=== PATIENT | female | born 1965 | race Hispanic/Latino ===

== ENCOUNTER 2018-02-14 06:06 | Emergency (ER) | payer SELFPAY ==
[2018-02-14] MEDS ORDERED: Sodium Chloride 0.9% 1,000 ML ONE (06:13)
[2018-02-14] MEDS ORDERED: Sodium Chloride 0.9% 1,000 ML IV ONE (06:13)
[2018-02-14 06:27] LABS: BASO % 0.3 % (0.0-2.0); EOS % 0.1 % (0.0-4.0); HEMOGLOBIN 13.6 g/dL (11.0-16.0); LYMPH # 2.1 K/uL (1.0-4.3); LYMPH % 18.5 % (20.0-40.0); MEAN CELL VOLUME 88.9 fL (81.0-99.0); MEAN CORPUSCULAR HEMOGLOBIN 30.8 pg (27.0-31.0); MEAN CORPUSCULAR HGB CONC 34.6 g/dL (33.0-37.0); MEAN PLATELET VOLUME 8.9 fL (7.2-11.7); MONO # 0.4 K/uL (0.0-0.8); MONO % 3.6 % (0.0-10.0); NEUT # 8.8 K/uL (1.8-7.0); NEUT % 77.5 % (50.0-75.0); RBC 4.42 Mil/uL (3.80-5.20); RED CELL DISTRIBUTION WIDTH 13.6 % (11.5-14.5); WHITE BLOOD COUNT 11.3 K/uL (4.8-10.8)
--- NOTE | 2018-02-14 06:39 | C.PDOC ---
History Of Present Illness 52 year old female presents to the ED c/o nausea, vomit and diarrhea that started at midnight. Patient reports she ate homemade egg salad and cake tonight prior to symptoms starting. Patient is not toleration PO. Patient denies fever, chills, back pain, dysuria, heamturia, rash. <Nela Avila - Last Filed: 02/14/18 06:47> History Per: Patient History/Exam Limitations: no limitations Onset/Duration Of Symptoms: Hrs Current Symptoms Are (Timing): Still Present Context: Food Location Of Pain/Discomfort: Epigastric Radiation Of Pain To:: None Quality Of Discomfort: "Pain" Associated Symptoms: Nausea, Vomiting, Diarrhea Alleviating Factors: None Recent travel outside of the [place]: No Additional History Per: Patient Abnormal Vaginal Bleeding: No <Nela Avila - Last Filed: 02/14/18 06:47> <Regine Espinoza - Last Filed: 02/14/18 09:01> Time Seen by Provider: 02/14/18 06:39 Chief Complaint (Nursing): GI Problem Past Medical History Reviewed: Historical Data, Nursing Documentation, Vital Signs Vital Signs: Last Vital Signs Temp 98 F 02/14/18 06:10 Pulse 72 02/14/18 06:10 Resp 18 02/14/18 06:10 BP 159/104 H 02/14/18 06:10 Pulse Ox 99 02/14/18 06:10 - Medical History PMH: No Chronic Diseases Surgical History: No Surg Hx Family History: States: Unknown Family Hx - Social History Hx Alcohol Use: Yes Hx Substance Use: No - Immunization History Hx Tetanus Toxoid Vaccination: No Hx Influenza Vaccination: No Hx Pneumococcal Vaccination: No <Nela Avila - Last Filed: 02/14/18 06:47> Vital Signs: Last Vital Signs Temp 98.1 F 02/14/18 07:44 Pulse 89 02/14/18 07:44 Resp 16 02/14/18 07:44 BP 131/76 02/14/18 07:44 Pulse Ox 100 02/14/18 07:44 <Regine Espinoza - Last Filed: 02/14/18 09:01> Review Of Systems Constitutional: Negative for: Fever, Chills Cardiovascular: Negative for: Chest Pain Respiratory: Negative for: Shortness of Breath Gastrointestinal: Positive for: Nausea, Vomiting, Abdominal Pain, Diarrhea Genitourinary: Negative for: Dysuria, Hematuria Skin: Negative for: Rash Neurological: Negative for: Weakness, Numbness <Nela Avila - Last Filed: 02/14/18 06:47> Physical Exam - Physical Exam Appears: Non-toxic, No Acute Distress Skin: Warm, Dry Head: Normacephalic Eye(s): bilateral: Normal Inspection Oral Mucosa: Dry Neck: Supple Chest: Symmetrical Cardiovascular: Rhythm Regular Respiratory: No Rales, No Rhonchi, No Wheezing Gastrointestinal/Abdominal: Soft, Tenderness (mild mid epigastric), No Guarding, No Rebound Extremity: Bilateral: Atraumatic, Normal Color And Temperature, Normal ROM Neurological/Psych: Oriented x3, Normal Speech, Normal Cognition Gait: Steady <Nela Avila - Last Filed: 02/14/18 06:47> ED Course And Treatment - Laboratory Results Result Diagrams: 02/14/18 06:24 O2 Sat by Pulse Oximetry: 99 (ON RA) Pulse Ox Interpretation: Normal Progress Note: Plan: - Labs. - Protonix 40 mg IVP. - IV fluids. - Toradol 30 mg IVP. - Zofran 4 mg IVP. - UA <Nela Avila - Last Filed: 02/14/18 06:47> - Laboratory Results Result Diagrams: 02/14/18 06:24 02/14/18 06:24 <Regine Espinoza - Last Filed: 02/14/18 09:01> Disposition Counseled Patient/Family Regarding: Studies Performed, Diagnosis - Disposition Disposition Time: 06:39 <Nela Avila - Last Filed: 02/14/18 06:47> Counseled Patient/Family Regarding: Studies Performed, Diagnosis, Need For Followup, Rx Given - Disposition Disposition Time: 09:00 - POA Present On Arrival: None <Regine Espinoza - Last Filed: 02/14/18 09:01> - Disposition Referrals: [facility] [Outside] Condition: STABLE Additional Instructions: FOLLOW UP WITH YOUR DOCTOR/CLINIC IN 1-2 DAYS USE MEDICATION NEEDED RETURN TO ER IF SYMPTOMS WORSEN DRINK PLENTY OF CLEAR FLUIDS Prescriptions: Ondansetron [Zofran Odt] 4 mg PO Q8 PRN #10 odt PRN Reason: Nausea/Vomiting Instructions: Nausea and Vomiting, Adult (DC) Forms: [employer] (Tuvaluan) Print Language: HEBREW - Clinical Impression Clinical Impression: Nausea & vomiting - Scribe Statement The provider has reviewed the documentation as recorded by the Scribe Ronny Sow All medical record entries made by the Scribe were at my direction and personally dictated by me. I have reviewed the chart and agree that the record accurately reflects my personal performance of the history, physical exam, medical decision making, and the department course for this patient. I have also personally directed, reviewed, and agree with the discharge instructions and disposition. <Nela Avila - Last Filed: 02/14/18 06:47> Physician Patient Turnover Patient Signed Over To: Regine Espinoza <Nela Avila - Last Filed: 02/14/18 06:47>
[2018-02-14 06:50] LABS: ALB/GLOB RATIO 1.5 (1.0-2.1); ALBUMIN 4.9 g/dL (3.5-5.0); ALT/SGPT 36 U/L (9-52); AST/SGOT 26 U/L (14-36); BLOOD UREA NITROGEN 12 mg/dL (7-17); CALCIUM 9.9 mg/dl (8.6-10.4); GFR NON-AFRICAN AMERICAN > 60; LIPASE 63 U/L (23-300)
[2018-02-14 07:45] VITALS: BP 131/76; PULSE 89; RESP 16; TEMP 98.1; O2SAT 100
[2018-02-14 08:06] LABS: URINE AMORPHOUS SEDIMENT OCC /ul (<OCC); URINE BILIRUBIN NEGATIVE (NEGATIVE); URINE BLOOD 1+ (NEGATIVE); URINE CLARITY Hazy (Clear); URINE COLOR Yellow (YELLOW); URINE GLUCOSE (UA) NORMAL (Normal); URINE LEUKOCYTE ESTERASE NEG Leu/uL (Negative); URINE PROTEIN NEGATIVE (NEGATIVE); URINE UROBILINOGEN NORMAL mg/dL (0.2-1.0)
== END 2018-02-14 09:17 | disposition home or self-care (01) ==
LOC: C.ER 06:06 → SUPCPDRO 06:06 → C.ER 09:17
DX: R11.2 Nausea with vomiting, unspecified (principal)
CPT/HCPCS: 80053; 81001; 83690; 85025; 96374; 96375; 99284; C9113; J1885; J2405; J7030